=== PATIENT | female | born 2000 | race Caucasian/White ===

== ENCOUNTER 2025-02-20 13:25 | Emergency (ER) | payer OTHER, SELFPAY ==
[2025-02-20] MEDS ORDERED: MULTTAB20 PO (14:02)
== END 2025-02-20 13:27 | disposition admitted as inpatient to this hospital (09) ==
LOC: M ED 13:25
DX: Z53.21 Procedure and treatment not carried out due to patient leaving prior to being seen by health care provider (principal)

== ENCOUNTER 2025-02-20 13:33 | Outpatient (CLI) | payer OTHER ==
[~2025-02-20] VITALS: Ht 160 cm; Wt 79.4 kg
[2025-02-20 13:53] VITALS: BP 105/56
[2025-02-20] MEDS ORDERED: MULTTAB20 PO (14:02)
[2025-02-20 15:17] VITALS: BP 116/56
[2025-02-20 15:29] LABS: KETONE, URINE AUTO RFX NEGATIVE (NEGATIVE); LEUKOCYTE ESTERASE UR AUTO RFX 1+ (NEGATIVE); MUCUS, URINE RFX SMALL (NEGATIVE); NITRITE, URINE AUTO RFX NEGATIVE (NEGATIVE); RBC, URINE AUTO RFX 5 /HPF (0-3); SQUAM EPITHELIAL CELL UR AURFX 3 /HPF (0-6); WBC, URINE AUTO RFX 4 /HPF (0-3)
[2025-02-20 16:31] VITALS: BP 112/53
[2025-02-20] MEDS ORDERED: HOME MED LIST COMPLETE! XX SCH (17:00)
[2025-02-20 17:28] VITALS: BP 114/55
[2025-02-20] MEDS ORDERED: LR 1,000 ML IV ONE (19:35)
[2025-02-20 20:01] LABS: PLATELET COUNT, AUTOMATED 198 10^3/uL (150-450)
[2025-02-20 22:06] LABS: GC DNA AMPLIFICATION NEGATIVE (NEGATIVE)
[2025-02-20 23:22] LABS: Trichomonas vaginalis (AMP) NOT DETECTED (NEGATIVE)
== END 2025-02-20 21:23 | disposition home or self-care (01) ==
LOC: M LDO 13:33
PROVIDERS: ATTEND Advanced Practice Midwife
DX: O26.853 Spotting complicating pregnancy, third trimester (principal); O47.03 False labor before 37 completed weeks of gestation, third trimester; Z3A.36 36 weeks gestation of pregnancy
CPT/HCPCS: 59025; 76815; 76817; 76820; 81001; 85027; 87086; 87661; 87810; 87850; G0463

== ENCOUNTER → 2025-03-25 | Outpatient (REF) | payer OTHER ==
[~2025-03-25] MED LIST: MULTTAB20 PO
== END ==
LOC: M PLALAB 13:06
PROVIDERS: ATTEND Nurse Practitioner Family
DX: Z3A.36 36 weeks gestation of pregnancy (principal)

== ENCOUNTER → 2025-04-03 | Outpatient (CLI) | payer OTHER ==
[2025-04-03 13:57] LABS: PLATELET COUNT, AUTOMATED 232 10^3/uL (150-450)
[2025-04-03 13:58] LABS: LDH LACTATE DEHYDROGENASE 160 U/L (120-246)
[2025-04-03 14:00] LABS: ALT/SGPT 20 U/L (7.0-40); AST/SGOT 16 U/L (<34); CREATININE FOR GFR 0.70 MG/DL (0.55-1.30); GLOMERULAR FILTRATION RATE > 90.0 (>60)
[2025-04-03 15:46] LABS: TOTAL PROTEIN,RANDOM URINE 37.4 MG/DL (0.0-14.0)
== END ==
LOC: M PLALAB 10:59
PROVIDERS: ATTEND Nurse Practitioner Family
DX: O16.3 Unspecified maternal hypertension, third trimester (principal)